=== PATIENT | female | born 1970 | race African-American/Black ===

== ENCOUNTER 2020-12-27 09:31 | Outpatient (CLI) | payer BC | END 2020-12-27 09:32 | disposition home or self-care (01) | LOC: NM 09:31 | PROVIDERS: ATTEND Student in an Organized Health Care Education/Training Program | DX: Z01.818 Encounter for other preprocedural examination (principal); B20 Human immunodeficiency virus [HIV] disease | CPT/HCPCS: 78452; 93017; A9500 ==